=== PATIENT | male | born 1935 | race Caucasian/White ===

== ENCOUNTER → 2017-06-10 | Outpatient (CLI) | payer MEDICARE, BC ==
[~2017-06-10] MED LIST: ASPI325 PO; ATOR10; BISO5; FOLTX; HYDACE10B PO; LORA1 PO; OMEP20ER PO; OXYACE5T PO; PROP60 PO; SILD50TA PO
== END | disposition home or self-care (01) ==
LOC: LAB SHORT 13:57 → PLD 13:57
DX: D48.5 Neoplasm of uncertain behavior of skin (principal)
CPT/HCPCS: 88305

== ENCOUNTER 2018-07-06 21:52 | Emergency (ER) | payer MEDICARE ==
[~2018-07-06] VITALS: Ht 177.8 cm; Wt 77.1 kg
[2018-07-06] MEDS ORDERED: TAMS.4ER PO (22:06)
[2018-07-06] MEDS ORDERED: NORT25 PO (22:07)
[2018-07-06 22:21] LABS: BASOPHILS ABSOLUTE AUTO 0.05 K/mm3 (0.00-0.23); BASOPHILS PERCENT AUTO 1 % (0-2); EOSINOPHILS ABSOLUTE AUTO 0.34 K/mm3 (0.00-0.68); EOSINOPHILS PERCENT AUTO 5 % (0-6); Hematocrit 43.5 % (37.0-53.0); Hemoglobin 14.5 g/dL (13.5-17.5); IMMATURE GRAN ABSOLUTE AUTO 0.01 K/mm3 (0.00-0.10); IMMATURE GRAN PERCENT AUTO 0 % (0-1); LYMPHOCYTES ABSOLUTE AUTO 2.49 K/mm3 (0.84-5.20); LYMPHOCYTES PERCENT AUTO 35 % (21-46); MONOCYTES ABSOLUTE AUTO 0.58 K/mm3 (0.16-1.47); MONOCYTES PERCENT AUTO 8 % (4-13); Mean Corpuscular HGB 33.4 pg (26.0-34.0); Mean Corpuscular HGB Conc 33.3 g/dL (31.5-36.5); Mean Corpuscular Volume 100 fL (80-100); Mean Platelet Volume 10.3 fL (9.1-12.4); NEUTROPHILS ABSOLUTE AUTO 3.57 K/mm3 (1.96-9.15); NEUTROPHILS PERCENT AUTO 51 % (41-73); Platelet Count 257 K/mm3 (150-400); RDW Standard Deviation 44.3 fL (35.1-46.3); Red Blood Cell Count 4.34 M/mm3 (4.30-5.90); White Blood Cell Count 7.04 K/mm3 (4.00-11.30)
[2018-07-06 22:35] LABS: Alanine Aminotransfer (ALT/SGP 18 U/L (12-78); Albumin, Blood 3.3 g/dL (3.4-5.0); Alk Phos 77 U/L (50-136); Anion Gap 9 mmol/L (6-16); Aspartate Aminotrans (AST/SGOT 17 U/L (12-37); Bilirubin, Total 0.3 mg/dL (0.1-1.0); Blood Urea Nitrogen 14 mg/dL (8-24); CO2, Blood 24 mmol/L (21-32); Calcium, Blood 8.6 mg/dL (8.5-10.1); Chloride, Blood 106 mmol/L (98-108); Creatinine, Blood 0.78 mg/dL (0.60-1.20); Globulin, Blood 3.4 g/dL (2.2-4.0); Glomerular Filtration Rate >60 (60-); Glucose, Blood 120 mg/dL (70-99); Potassium, Blood 3.5 mmol/L (3.5-5.5); Sodium, Blood 139 mmol/L (136-145); Total Protein, Blood 6.7 g/dL (6.4-8.2)
== END 2018-07-06 23:35 | disposition home or self-care (01) ==
LOC: ER 21:52
PROVIDERS: Emergency Medicine
DX: R06.02 Shortness of breath (principal); K44.9 Diaphragmatic hernia without obstruction or gangrene; I10 Essential (primary) hypertension; G47.00 Insomnia, unspecified; N40.0 Benign prostatic hyperplasia without lower urinary tract symptoms; Z87.891 Personal history of nicotine dependence; Z79.899 Other long term (current) drug therapy; Z79.82 Long term (current) use of aspirin
CPT/HCPCS: 36415; 71046; 80053; 85025; 93005; 93010; 99285-25

== ENCOUNTER → 2018-07-19 | Outpatient (CLI) | payer MEDICARE, BC ==
[~2018-07-19] MED LIST changes: +NORT25 PO; +TAMS.4ER PO
[2018-07-20 13:22] LABS: Stool Occult Bld Immuno 1 Negative (NEGATIVE)
== END | disposition home or self-care (01) ==
LOC: LAB 14:39 → LAB SHORT 14:39
PROVIDERS: Family Medicine
DX: R19.5 Other fecal abnormalities (principal)
CPT/HCPCS: 82274

== ENCOUNTER 2019-07-20 16:03 | Inpatient (IN) | payer MEDICARE ==
[~2019-07-20] VITALS: Ht 177.8 cm; Wt 76.2 kg
[2019-07-20 17:48] LABS: BASOPHILS ABSOLUTE AUTO 0.03 K/mm3 (0.00-0.23); BASOPHILS PERCENT AUTO 1 % (0-2); EOSINOPHILS ABSOLUTE AUTO 0.19 K/mm3 (0.00-0.68); EOSINOPHILS PERCENT AUTO 3 % (0-6); Hematocrit 44.7 % (37.0-53.0); Hemoglobin 15.2 g/dL (13.5-17.5); IMMATURE GRAN ABSOLUTE AUTO 0.01 K/mm3 (0.00-0.10); IMMATURE GRAN PERCENT AUTO 0 % (0-1); LYMPHOCYTES ABSOLUTE AUTO 1.35 K/mm3 (0.84-5.20); LYMPHOCYTES PERCENT AUTO 22 % (21-46); MONOCYTES ABSOLUTE AUTO 0.65 K/mm3 (0.16-1.47); MONOCYTES PERCENT AUTO 11 % (4-13); Mean Corpuscular HGB 35.1 pg (26.0-34.0); Mean Corpuscular Volume 103 fL (80-100); Mean Platelet Volume 10.6 fL (9.1-12.4); NEUTROPHILS ABSOLUTE AUTO 3.91 K/mm3 (1.96-9.15); NEUTROPHILS PERCENT AUTO 64 % (41-73); Platelet Count 259 K/mm3 (150-400); RDW Coefficient Variation 12.1 % (11.7-14.2); RDW Standard Deviation 46.5 fL (35.1-46.3); Red Blood Cell Count 4.33 M/mm3 (4.30-5.90); White Blood Cell Count 6.14 K/mm3 (4.00-11.30)
[2019-07-20 18:06] LABS: Alanine Aminotransfer (ALT/SGP 25 U/L (12-78); Albumin, Blood 3.8 g/dL (3.4-5.0); Albumin/Globulin Ratio 1.1 (0.8-1.8); Alk Phos 62 U/L (50-136); Anion Gap 5 mmol/L (6-16); Aspartate Aminotrans (AST/SGOT 22 U/L (12-37); Bilirubin, Total 0.6 mg/dL (0.1-1.0); Blood Urea Nitrogen 26 mg/dL (8-24); Bun/Creatinine Ratio 40.3 (12.0-20.0); CO2, Blood 26 mmol/L (21-32); Chloride, Blood 104 mmol/L (98-108); Creatinine, Blood 0.65 mg/dL (0.60-1.20); Globulin, Blood 3.5 g/dL (2.2-4.0); Glomerular Filtration Rate >60 (60-); Glucose, Blood 126 mg/dL (70-99); Potassium, Blood 3.7 mmol/L (3.5-5.5); Sodium, Blood 135 mmol/L (136-145); Total Protein, Blood 7.3 g/dL (6.4-8.2)
[2019-07-20 18:09] LABS: Salicylate 3.1 mg/dL (2.8-20.0)
[2019-07-20 18:10] LABS: Acetaminophen, Random <2.0 ug/mL (10.0-30.0)
[2019-07-20 18:20] LABS: International Normalized Ratio 1.03
[2019-07-20 19:04] LABS: Source, Urine Clean Catch
[2019-07-20 19:17] LABS: Bilirubin, Urine Neg (Neg); Blood, Urine Neg (Neg); Glucose Qualitative, Urine Neg (Neg); Ketones, Urine 1+ (Neg); Leukocyte Esterase, Urine Neg (Neg); Nitrite, Urine Neg (Neg); Protein, Urine Neg (Neg); Specific Gravity, Urine 1.015 (1.003-1.022); Urobilinogen, Urine 1+ (Normal)
[2019-07-20 19:27] LABS: Appearance, Urine Clear (Clear); Color, Urine Yellow (P-Yellow)
[2019-07-20] MEDS ORDERED: XANAX0.25 MG PO (19:31)
[2019-07-20] MEDS ORDERED: ZOLOFT50 MG PO (19:31)
[2019-07-20] MEDS ORDERED: PROP10 PO (19:31)
[2019-07-20] MEDS ORDERED: ASPI325EC PO (19:32)
[2019-07-20 23:33] LABS: Hematocrit 38.8 % (37.0-53.0); Hemoglobin 13.1 g/dL (13.5-17.5)
--- NOTE | 2019-07-21 00:48 | NUR ---
84 YR OLD MALE ADMITTED EARLIER FROM THE ED WITH DX OF GI BLEED. PLACED ON MED TELE. ALERT AND ORIENTED WITH SOME CONFUSION. WENT TO SLEEP SOON AFTER ADMIT, AWAKENED AND HAD BLOODY STOOL IN BEDSIDE COMMODE. CALL LIGHT IN [facility]
--- NOTE | 2019-07-21 01:41 | NUR ---
PT UP TO COMMODE EARLIER, STOOL 400 CC TARRY, LIQUID STOOL. VSS. ALERT AND ORIENTED. ASSISTED BACK TO BED. MD NOTIFIED, ORDERED FOLLOW UP H/H IN 2 HRS - SCHEDULED FOR 329. CALL LIGHT IN [place]
--- NOTE | 2019-07-21 04:24 | NUR ---
SHIFT SUMMARY PT ADMITTED TO FLOOR FROM THE ED LAST EVENING WITH DX OF GI BLEED. CAME TO FLOOR WAS ALERT AND ORIENTED BUT SOME CONFUSION TO HIS MEDICATIONS. SLEPT A LITTLE AFTERWARDS, BUT SET BED ALARM OFF GETTING UP TO THE COMMODE AND DEFECATED 400 CC DARK RED LIQUID STOOL. CLEANED UP AND ASSISTED BACK TO BED. VSS. NOTIFIED AND H/H ORDERED FOR 2 HRS LATER. H/H HAS BEEN DRAWN BUT AWAITING ERSULTS. CALL LIGHT IN [place]
[2019-07-21 04:52] LABS: Hematocrit 38.1 % (37.0-53.0); Hemoglobin 12.7 g/dL (13.5-17.5)
[2019-07-21 05:19] LABS: Alanine Aminotransfer (ALT/SGP 25 U/L (12-78); Albumin, Blood 3.4 g/dL (3.4-5.0); Albumin/Globulin Ratio 1.2 (0.8-1.8); Alk Phos 52 U/L (50-136); Anion Gap 5 mmol/L (6-16); Aspartate Aminotrans (AST/SGOT 20 U/L (12-37); Bilirubin, Total 0.6 mg/dL (0.1-1.0); Blood Urea Nitrogen 21 mg/dL (8-24); Bun/Creatinine Ratio 32.2 (12.0-20.0); CO2, Blood 28 mmol/L (21-32); Calcium, Blood 8.7 mg/dL (8.5-10.1); Chloride, Blood 104 mmol/L (98-108); Creatinine, Blood 0.65 mg/dL (0.60-1.20); Globulin, Blood 2.9 g/dL (2.2-4.0); Glomerular Filtration Rate >60 (60-); Glucose, Blood 84 mg/dL (70-99); Potassium, Blood 3.7 mmol/L (3.5-5.5); Sodium, Blood 137 mmol/L (136-145); Total Protein, Blood 6.3 g/dL (6.4-8.2)
--- NOTE | 2019-07-21 06:32 | NUR ---
PCU SLEEP TECHNICIAN REPORTED BOUTS OF V TACH, V BRIAN AND MULTIPLE PVC'S. PT APPEARS ASYMPTOMATIC. CALL PLACED TO , ORDERS FOR MAGNESIUM LEVEL - JCRN
[2019-07-21 08:04] LABS: Hematocrit 40.6 % (37.0-53.0); Hemoglobin 13.3 g/dL (13.5-17.5)
--- NOTE | 2019-07-21 10:07 | NUR ---
GI comment on I&O unmeasureable BM a
[2019-07-21 12:16] LABS: Hematocrit 41.1 % (37.0-53.0); Hemoglobin 13.9 g/dL (13.5-17.5)
[2019-07-21 15:18] LABS: Hemoglobin 14.2 g/dL (13.5-17.5)
--- NOTE | 2019-07-21 17:30 | NUR ---
SUMMARY PT TRANSFERRED TO ROOM 347 FROM [facility], TELE NOTIFIED, PT ORIENTED TO ROOM AND CALL SYSTEM
--- NOTE | 2019-07-21 17:31 | NUR ---
PATIENT HAS BEEN TRANSFERRED TO ROOM 347. THE PATIENT'S HAS BEEN NOTIFIED BY RN OF THIS TRANSFER AND WHY. PATIENT IS A HIGH FALL RISK AND CONFUSED. HE ATTEMPTS TO GET UP TO THE BATHROOM ON HIS OWN. REPORT GIVEN TO JACQUELINE ANDRADE. HOME CPAP MOVED TO ROOM 347 WITH PATIENT.
--- NOTE | 2019-07-21 19:00 | NUR ---
ASSUMED CARE. TAMIKA BED ALARM WAS SOUNDING, HE WAS GETTING UP TO USE THE BATHROOM. USE OF WALKER TO BATHROOM WITH SBA. UNMEASURED VOID NOTED. GOT BACK TO BED. DENIED ANY PAIN OR DISCOMFORT. STATES NO NAUSEA OR ABDOMINAL PAIN. NO DIZZINESS UPON STANDING. SKIN PWD. LUNGS CLEAR. HR SINUS AT 66. FORGETS TO CALL AND USE CALL LIGHT. PLACED BED ALARM BACK ON. CALL LIGHT GIVEN.
--- NOTE | 2019-07-21 23:27 | NUR ---
TAMIKA IN SLEEPING IN BED, BED ALARM IS ON. NO SIGNS OF DISTRESS NOTED. CALL LIGHT IN [place].
--- NOTE | 2019-07-22 02:57 | NUR ---
TAMIKA IS BACK TO SLEEP, CALL LIGHT IN REACH. NO SIGNS OF DISTRESS.
[2019-07-22 05:43] LABS: BASOPHILS ABSOLUTE AUTO 0.04 K/mm3 (0.00-0.23); BASOPHILS PERCENT AUTO 1 % (0-2); EOSINOPHILS ABSOLUTE AUTO 0.19 K/mm3 (0.00-0.68); EOSINOPHILS PERCENT AUTO 3 % (0-6); Hematocrit 37.6 % (37.0-53.0); Hemoglobin 12.8 g/dL (13.5-17.5); IMMATURE GRAN ABSOLUTE AUTO 0.01 K/mm3 (0.00-0.10); IMMATURE GRAN PERCENT AUTO 0 % (0-1); LYMPHOCYTES ABSOLUTE AUTO 1.38 K/mm3 (0.84-5.20); LYMPHOCYTES PERCENT AUTO 20 % (21-46); MONOCYTES ABSOLUTE AUTO 0.71 K/mm3 (0.16-1.47); MONOCYTES PERCENT AUTO 10 % (4-13); Mean Corpuscular HGB 35.5 pg (26.0-34.0); Mean Corpuscular Volume 104 fL (80-100); Mean Platelet Volume 10.7 fL (9.1-12.4); NEUTROPHILS ABSOLUTE AUTO 4.49 K/mm3 (1.96-9.15); NEUTROPHILS PERCENT AUTO 66 % (41-73); Platelet Count 215 K/mm3 (150-400); RDW Coefficient Variation 12.3 % (11.7-14.2); RDW Standard Deviation 47.5 fL (35.1-46.3); Red Blood Cell Count 3.61 M/mm3 (4.30-5.90); White Blood Cell Count 6.82 K/mm3 (4.00-11.30)
--- NOTE | 2019-07-22 05:51 | NUR ---
SHIFT SUMMARY: TAMIKA IS ALERT AND ORIENTED TO SELF AND PLACE. HE HAS HAD 2 BM THIS SHIFT WITH ONLY ONE THAT WAS DARK BROWNISH RED BLOOD IN IT. NO NAUSEA, DIZZINESS OR ABDOMINAL TENDERNESS NOTED. DOES NOT USE CALL LIGHT BUT IS INPULSIVE GETTING UP. BED ALARM REMAINED ON. HE IS SBA ASSIST WITH WALKER TO BATHROOM. VS HAVE REMAINED STABLE. NO MEDS WERE GIVEN THIS SHIFT. HE SLEPT MOST OF THE NIGHT EXCEPT FOR BATHROOM RUNS. NO OTHER CHANGES TO REPORT THIS SHIFT.
[2019-07-22] MEDS ORDERED: ACET325 PO (10:53)
[2019-07-22] MEDS ORDERED: TRAM50 PO (10:53)
--- NOTE | 2019-07-22 13:30 | NUR ---
SUMMARY/DISCHARGE PT DISCHARGED TO HOME, DISCUSSED DISCHARGE INSTRUCTIONS WITH THE SPOUSE OVER THE PHONE, PT TAKEN OUT SAFELY VIA WHEELCHAIR
== END 2019-07-22 12:55 | disposition home or self-care (01) | DRG 379 ==
LOC: ER 16:03 → MEDS 16:04
PROVIDERS: Emergency Medicine; Internal Medicine; Nurse Practitioner Acute Care; Physician Assistant; ADMIT Internal Medicine
DX: K57.31 Diverticulosis of large intestine without perforation or abscess with bleeding (principal); I10 Essential (primary) hypertension; N40.0 Benign prostatic hyperplasia without lower urinary tract symptoms; G25.0 Essential tremor; Z95.0 Presence of cardiac pacemaker; Z96.612 Presence of left artificial shoulder joint; Z79.82 Long term (current) use of aspirin; F32.9 Major depressive disorder, single episode, unspecified; Z87.891 Personal history of nicotine dependence; Z66 Do not resuscitate; M16.11 Unilateral primary osteoarthritis, right hip; G31.84 Mild cognitive impairment of uncertain or unknown etiology
CPT/HCPCS: 36415; 74177; 80053; 81003; 83735; 85014; 85018; 85025; 85610; 85730; 86850; 86900; 86901; 93005; 93010; 94762; 99285-25; A9270; G0378; G0480; Q9967

== ENCOUNTER → 2020-05-26 | Outpatient (CLI) | payer OTHER ==
[~2020-05-26] MED LIST changes: +ACET325 PO; +ASPI325EC PO; +DONEPEZIL HCL5 M2 PO; +PROP10 PO; +RIVASTIGMINE1.5 MG PO; +TRAM50 PO; +XANAX0.25 MG PO; +ZOLOFT50 MG PO
[2020-06-29 10:48] LABS: CRYPTOSPORIDIUM EIA Negative (Negative)
== END | disposition home or self-care (01) ==
LOC: LAB SHORT 08:15 → LAB 08:15
PROVIDERS: Family Medicine
DX: A07.1 Giardiasis [lambliasis] (principal)
CPT/HCPCS: 87328; 87329

== ENCOUNTER → 2020-06-12 | Outpatient (CLI) | payer OTHER | END | disposition home or self-care (01) | LOC: PLD 08:16 → LAB SHORT 08:16 | DX: D48.5 Neoplasm of uncertain behavior of skin (principal) | CPT/HCPCS: 88305 ==

== ENCOUNTER → 2020-08-09 | Outpatient (CLI) | payer OTHER | LOC: LAB SHORT 11:12 → LAB 11:12 | DX: D48.5 Neoplasm of uncertain behavior of skin (principal) | CPT/HCPCS: 88305 ==

== ENCOUNTER → 2020-12-19 | Outpatient (CLI) | payer OTHER | LOC: LAB SHORT 15:52 → LAB 15:52 | DX: D48.5 Neoplasm of uncertain behavior of skin (principal) | CPT/HCPCS: 88305 ==

== ENCOUNTER → 2022-01-30 | Outpatient (CLI) | payer OTHER | END | disposition home or self-care (01) | LOC: LAB SHORT 12:00 → LAB 12:00 | DX: L01.01 Non-bullous impetigo (principal); R21 Rash and other nonspecific skin eruption | CPT/HCPCS: 87070; 87077; 87186; 87205 ==

== ENCOUNTER 2022-06-17 14:25 | Emergency (ER) | payer OTHER ==
[~2022-06-17] VITALS: Ht 185.4 cm; Wt 77.1 kg
[2022-06-17 16:40] LABS: BASOPHILS ABSOLUTE AUTO 0.01 K/mm3 (0.00-0.23); BASOPHILS PERCENT AUTO 0 % (0-2); EOSINOPHILS ABSOLUTE AUTO 0.03 K/mm3 (0.00-0.68); EOSINOPHILS PERCENT AUTO 1 % (0-6); Hematocrit 39.4 % (37.0-53.0); Hemoglobin 13.5 g/dL (13.5-17.5); IMMATURE GRAN ABSOLUTE AUTO 0.01 K/mm3 (0.00-0.10); IMMATURE GRAN PERCENT AUTO 0 % (0-1); LYMPHOCYTES ABSOLUTE AUTO 0.48 K/mm3 (0.84-5.20); LYMPHOCYTES PERCENT AUTO 7 % (21-46); MONOCYTES ABSOLUTE AUTO 0.42 K/mm3 (0.16-1.47); MONOCYTES PERCENT AUTO 7 % (4-13); Mean Corpuscular HGB 34.1 pg (26.0-34.0); Mean Corpuscular HGB Conc 34.3 g/dL (31.5-36.5); Mean Corpuscular Volume 100 fL (80-100); Mean Platelet Volume 11.1 fL (9.1-12.4); NEUTROPHILS ABSOLUTE AUTO 5.51 K/mm3 (1.96-9.15); NEUTROPHILS PERCENT AUTO 85 % (41-73); Platelet Count 251 K/mm3 (150-400); RDW Coefficient Variation 12.4 % (11.7-14.2); RDW Standard Deviation 45.5 fL (35.1-46.3); Red Blood Cell Count 3.96 M/mm3 (4.30-5.90); White Blood Cell Count 6.46 K/mm3 (4.00-11.30)
[2022-06-17 16:50] LABS: Albumin, Blood 3.2 g/dL (3.4-5.0); Albumin/Globulin Ratio 0.9 (0.8-1.8); Bilirubin, Total 0.8 mg/dL (0.1-1.0); Bun/Creatinine Ratio 32.4 (12.0-20.0); Creatinine, Blood 0.68 mg/dL (0.60-1.20); Globulin, Blood 3.7 g/dL (2.2-4.0); Potassium, Blood 4.1 mmol/L (3.5-5.5); Total Protein, Blood 6.9 g/dL (6.4-8.2)
[2022-06-17 19:07] LABS: Source, Urine Straight Cath
[2022-06-17 19:12] LABS: Appearance, Urine Clear (Clear); Bilirubin, Urine Neg (Neg); Blood, Urine Neg (Neg); Color, Urine Yellow (P-Yellow); Glucose Qualitative, Urine Neg (Neg); Ketones, Urine 2+ (Neg); Leukocyte Esterase, Urine Neg (Neg); Nitrite, Urine Neg (Neg); Protein, Urine 1+ (Neg); Urobilinogen, Urine NORM (Normal)
[2022-06-17 19:31] LABS: Influenza A, PCR NEGATIVE (NEGATIVE); Influenza B, PCR NEGATIVE (NEGATIVE); Resp Syncytial Virus, PCR NEGATIVE (NEGATIVE); SARS-Cov-2 (COVID-19) PCR, MMC NEGATIVE (NEGATIVE)
[2022-06-17] MEDS ORDERED: ONDA4ODT MM (20:29)
== END 2022-06-17 21:40 | disposition home or self-care (01) ==
LOC: ER 14:25
PROVIDERS: Emergency Medicine; Student in an Organized Health Care Education/Training Program
DX: R53.1 Weakness (principal); R19.7 Diarrhea, unspecified; N40.0 Benign prostatic hyperplasia without lower urinary tract symptoms; I10 Essential (primary) hypertension; Z86.73 Personal history of transient ischemic attack (TIA), and cerebral infarction without residual deficits; Z87.891 Personal history of nicotine dependence; Z20.822 Contact with and (suspected) exposure to COVID-19; Z88.6 Allergy status to analgesic agent; Z79.899 Other long term (current) drug therapy
CPT/HCPCS: 0241U; 80053; 85025; 93005; 93010; A9270; J7030